=== PATIENT | male | born 1995 | race Caucasian/White ===

== ENCOUNTER 2019-03-20 15:54 | Emergency (ER) | payer MEDICAID ==
[~2019-03-20] VITALS: Ht 185.4 cm; Wt 86.4 kg
[2019-03-20 16:21] VITALS: BP 133/80
--- NOTE | 2019-03-20 16:27 | NUR ---
PT AMBULATED TO LOBBY AT THIS TIME, VSS
--- NOTE | 2019-03-20 16:50 | NUR ---
PT TAKEN TO BED 12.
--- NOTE | 2019-03-20 17:12 | NUR ---
23 Y/O MALE C/O 02/15 TESTICULAR DULL/NAGGING PAIN PAIN X1 DAY. PT WAS AT [facility] TODAY AND NOTICEDSUDDEN ONSET OF INTERMITENT, RIGHT PRESSURE PAIN THAT INCREASES W/ TOUCH. DENIES TRAUMA, NO REDNESS. MEDHX:DENIES RX:DENIES
[2019-03-20 17:19] LABS: APPEARANCE,URINE HAZY (CLEAR); BILIRUBIN,URINE NEGATIVE (NEGATIVE); BLOOD, URINE NEGATIVE (NEGATIVE); COLOR,URINE YELLOW (YELLOW); LEUKOCYTE ESTERASE ,URINE NEGATIVE (NEGATIVE); NITRITE, URINE NEGATIVE (NEGATIVE); PH,URINE 5.5 (5.0-9.0); UGLUCOSE NEGATIVE (NEGATIVE)
[2019-03-20] MEDS: KETOROLAC 30 MG/ML VIAL IM ONE (18:57)
--- NOTE | 2019-03-20 19:19 | NUR ---
Patient discharged with v/s stable. Written and verbal after care instructions given and explained. Patient alert, oriented and verbalized understanding of instructions. Ambulatory with steady gait. All questions addressed prior to discharge. ID band removed. Patient advised to follow up with PMD. Rx of NORCO 5MG-325MG AMD IBUPROFEN 600MG given. Patient educated on indication of medication including possible reaction and side effects. Opportunity to ask questions provided and answered.
[2019-03-20 19:20] VITALS: BP 118/67
== END 2019-03-20 19:19 | disposition home or self-care (01) ==
LOC: MED 15:54
DX: N43.3 Hydrocele, unspecified (principal)
CPT/HCPCS: 76870; 81003; 96372; 99284; J1885; Q0092